=== PATIENT | male | born 1995 | race Caucasian/White ===

== ENCOUNTER 2017-06-19 20:13 | Emergency (ER) | payer BC ==
[2017-06-19] MEDS ORDERED: FLUORESCEIN SODIUM 1 MG STRIP OP ONE ×2 (22:27→22:33)
[2017-06-19] MEDS ORDERED: PROPARACAINE 0.5% 15 ML OPHT DROP ONE (22:27)
--- NOTE | 2017-06-19 22:27 | EDPHY ---
H & P Stated Complaint: Left eye burning and pain HPI/ROS: HPI CHIEF COMPLAINT: Left eye pain, draining, possible scratch HISTORY OF PRESENT ILLNESS: Patient is a 21-year-old male he is otherwise healthy, he presents emergency room with left eye irritation and pain. States this started around 10:00 a.m.. States it peaked throughout the day today around 6:00 p.m. It started really bothering him. He states he has had drainage out of that left eye. No purulent drainage is been mainly clear tears. Denies double vision. Denies blurry vision. He does wear contacts. He reports to me that 2 days ago he accidentally put hydrogen peroxide into his contact case and then put his contacts into his eyes. He states he immediately felt burning. He took his contacts out did not wear them. He flushed his eyes copiously. He states the burning sensation went away. And then 48 hr later he developed this discomfort 10:00 a.m. This morning. Pain is currently 4/10 left eye. No pain right eye. Past Medical History: Denies medical history except for asthma and eczema as a child. Past Surgical History: Denies surgical history Social History: Denies drugs alcohol tobacco products. Resides in [place]. Visiting his father here. Family History: Noncontributory ROS REVIEW OF SYSTEMS: A comprehensive 10 point review of systems is otherwise negative aside from elements mentioned in the history of present illness. Exam Constitutional triage nursing summary reviewed, vital signs reviewed, awake/ alert. Eyes both conjunctivae are slightly injected worse on the left eye than right eye, pupil equal round react to light, extra movements intact, globes are soft, no proptosis, no periorbital swelling or redness. Proparacaine was applied to the left eye with immediate pain relief. Additionally fluorescein was used for uptake. There was no uptake visualized. No evidence of corneal abrasion or corneal tear, no evidence of corneal scratch. The left conjunctiva is injected. Anterior chamber is normal. No flare. Posterior eye exam without dilatation is unremarkable. Visual acuity reviewed. HENT normal inspection, atraumatic, moist mucus membranes, no epistaxis, neck supple/ no meningismus, no raccoon eyes. Respiratory clear to auscultation bilaterally, normal breath sounds, no respiratory distress, no wheezing. Cardiovascular rate normal, regular rhythm, no murmur, no edema, distal pulses normal. Gastrointestinal soft, non-tender, no rebound, no guarding, normal bowel sounds, no distension, no pulsatile mass. Genitourinary no CVA tenderness. Musculoskeletal no midline vertebral tenderness, full range of motion, no calf swelling, no tenderness of extremities, no meningismus, good pulses, neurovascularly intact. Skin diffuse rash that looks like eczema. No particular purpura. Neurologic awake, alert and oriented x 3, AAOx3, moves all 4 extremities equally, motor intact, sensory intact, CN II-XII intact, normal cerebellar, normal vision, normal speech. Psychiatric normal mood/affect. Heme/Lymph/Immune no lymphadenopathy. Differential Diagnosis: Includes but is not limited to in a particular order conjunctivitis, viral conjunctivitis, bacterial conjunctivitis, glaucoma, foreign body, corneal abrasion, corneal tear, chemical irritation Medical Decision Making: Plan for this patient he did have proparacaine instilled with great pain relief. Additionally fluorescein was used with Wood' s lamp and there is no evidence of corneal abrasion or tear. The conjunctiva slightly injected. Most likely this is either a chemical conjunctivitis versus viral versus bacterial. I will have the patient follow up closely with Ophthalmology tomorrow. Oral for will be given he understands call their 1st thing in the morning. I will place this patient on antibiotic eyedrops. He understands he should follow up with Ophthalmology. If he has worsening symptoms tonight or tomorrow and cannot get in with Ophthalmology he should return emergency room. Additionally the patient is asked me for steroids for his eczema. I have prescribed him prednisone orally however he understands to not take this until he is seen by Ophthalmology and his eye is taking care of. He understands she is not start the prednisone until is acute Eye issue was resolved. Source: Patient - Personal History Current Tetanus/Diphtheria Vaccine: Yes Current Tetanus Diphtheria and Acellular Pertussis (TDAP): Yes - Medical/Surgical History Hx Asthma: Yes Hx Chronic Respiratory Disease: No Hx Diabetes: No Hx Cardiac Disease: No Hx Renal Disease: No Hx Cirrhosis: No Hx Alcoholism: No Hx HIV/AIDS: No Hx Splenectomy or Spleen Trauma: No Other PMH: denies - Social History Smoking Status: Never smoked Constitutional: Initial Vital Signs Temperature (C) 36.9 C 06/19/17 20:15 Heart Rate 66 06/19/17 20:15 Respiratory Rate 16 06/19/17 20:15 Blood Pressure 140/68 H 06/19/17 20:15 O2 Sat (%) 93 06/19/17 20:15 O2 Delivery Mode Room Air Allergies/Adverse Reactions: No Known Allergies Allergy (Unverified 06/19/17 20:17) Home Medications: Medication Instructions Recorded predniSONE 50 mg PO DAILY #5 tablet 06/19/17 Medical Decision Making - Data Points Medications Given: Discontinued Medications Fluorescein Sodium ([id number]-[id number]) 1 mg OP EDNOW ONE Stop: 06/19/17 22:34 Last Admin: 06/19/17 22:34 Dose: 1 mg Proparacaine HCl (Alcaine 0.5%) 1 drops LEFTEYE ONCE ONE Stop: 06/19/17 22:34 Last Admin: 06/19/17 22:34 Dose: 1 drop Departure - Departure Disposition: Home, Routine, Self-Care Clinical Impression: Conjunctivitis Qualifiers: Conjunctivitis type: acute Acute conjunctivitis type: unspecified Laterality: left Qualified Code(s): H10.32 - Unspecified acute conjunctivitis, left eye Condition: Good Instructions: Conjunctivitis (ED) Additional Instructions: 1. Do not rub your eye. 2. Cool compresses are fine. 3. Antibiotics as prescribed. 4. Follow up with Ophthalmology tomorrow. Call their for an appointment. 5. Return emergency room if you have worsening symptoms. 6. Do not take the oral steroids or prednisone until your eye issue is resolved. Referrals: NONE *PRIMARY CARE P,. [Primary Care Provider] - As per Instructions Mode Smith MD [Medical Doctor] - As per Instructions Prescriptions: predniSONE 50 mg PO DAILY #5 tablet
[2017-06-19] MEDS ORDERED: PROPARACAINE 0.5% 15 ML OPHT DROP LEFTEYE ONE (22:33)
[2017-06-19] MEDS ORDERED: OFLOXACIN 0.3% SOLN PREPACK OPHT.BTL TAKEHOME ONE ×2 (22:52→23:03)
[2017-06-19 23:09] VITALS: BP 132/78; PULSE 69; RESP 18; TEMP 98.1; O2SAT 96
[2017-06-20] MEDS ORDERED: OFLOXACIN 0.3% 5ML OPHT DROPS EACHEYE SCH (02:00)
== END 2017-06-19 23:08 | disposition home or self-care (01) ==
DX: H10.32 Unspecified acute conjunctivitis, left eye (principal); J45.909 Unspecified asthma, uncomplicated